=== PATIENT | male | born 1950 | race African-American/Black ===

== ENCOUNTER 2020-08-30 12:19 | Observation (INO) ==
[2020-08-30] MEDS ORDERED: PANTOPRAZOLE 40 MG TABLET PO STA (13:19)
[2020-08-30 13:38] LABS: Basophils # 0.1 10*3/uL (0.0-0.2); Basophils % 0.5 % (0.0-0.8); Eosinophils # 0.1 10*3/uL (0.0-0.87); Eosinophils % 0.8 % (0.00-10.9); Hematocrit 32.1 VOL% (42.0-52.0); Hemoglobin 10.3 GM/DL (14.0-18.0); Immature Granulocytes % 0.5 %; Immature Granulocytes Absolute 0.06 #; Lymphocytes # 2.7 10*3/uL (1.4-4.0); Lymphocytes % 20.2 % (21.2-54.2); Mean Corpuscular HGB Conc 32.1 GM/DL (32-36); Mean Corpuscular Volume 84.3 FL (87-102); Mean Platelet Volume 10.6 FL (9.6-12.0); Platelet Count 238 T/CUMM (130-400); Red Blood Count 3.81 MC/CUMM (3.8-5.5); Red Cell Distribution Width 15.2 % (9.3-17.3); White Blood Count 13.2 T/CUMM (4-12)
[2020-08-30] MEDS ORDERED: PANTOPRAZOLE 40 MG VIAL IV STA (13:50)
[2020-08-30 14:02] LABS: Albumin 3.4 G/DL (3.4-5.0); Bilirubin,Total 0.5 MG/DL (0.2-1.0); Calcium 8.7 MG/DL (8.5-10.1); Osmolality,Calculated 289.3 MOS/KG (273-304); Total Protein 7.2 G/DL (6.4-8.3)
[2020-08-30 14:12] LABS: PT Patient Result 10.9 SECS (9.8-11.9); Partial Thromboplastin Time 23.2 SECS (23.9-33.8)
[2020-08-30] MEDS ORDERED: GLUCAGON 1 MG VIAL IM PRN (14:59)
[2020-08-30] MEDS ORDERED: ACETAMINOPHEN 325 MG TABLET PO PRN (14:59)
[2020-08-30] MEDS ORDERED: DEXTROSE 50% 25 GM/50 ML VIAL IV PRN (14:59)
[2020-08-30] MEDS ORDERED: SODIUM CHLORIDE 0.9% 1,000 ML IV PRN (15:13)
[2020-08-30] MEDS: SODIUM CHLORIDE 0.9% 1,000 ML IV SCH (15:20)
[2020-08-30 17:46] LABS: Hemoglobin 9.3 GM/DL (14.0-18.0)
[2020-08-30] MEDS: INSULIN REGULAR 100 UNIT/ML SUBCUT SCH ×2 (20:38→20:41)
[2020-08-30] MEDS: PANTOPRAZOLE 40 MG VIAL IV SCH (20:38)
[2020-08-30 22:00] LABS: Hematocrit 25.8 VOL% (42.0-52.0); Hemoglobin 8.3 GM/DL (14.0-18.0)
[2020-08-31 02:36] LABS: Basophils # 0.1 10*3/uL (0.0-0.2); Basophils % 0.5 % (0.0-0.8); Eosinophils # 0.3 10*3/uL (0.0-0.87); Eosinophils % 2.3 % (0.00-10.9); Hematocrit 25.6 VOL% (42.0-52.0); Hemoglobin 8.1 GM/DL (14.0-18.0); Immature Granulocytes % 0.5 %; Immature Granulocytes Absolute 0.06 #; Lymphocytes % 36.1 % (21.2-54.2); Mean Corpuscular HGB Conc 31.6 GM/DL (32-36); Mean Corpuscular Volume 84.5 FL (87-102); Mean Platelet Volume 10.8 FL (9.6-12.0); Monocytes % 8.5 % (1.7-12.7); Neutrophils % 52.1 % (38.7-73.9); Platelet Count 194 T/CUMM (130-400); Red Blood Count 3.03 MC/CUMM (3.8-5.5); White Blood Count 11.2 T/CUMM (4-12)
[2020-08-31 03:09] LABS: Calcium 8.1 MG/DL (8.5-10.1); Osmolality,Calculated 296.7 MOS/KG (273-304)
[2020-08-31] MEDS: SODIUM CHLORIDE 0.9% 1,000 ML IV SCH (06:10)
[2020-08-31] MEDS: INSULIN REGULAR 100 UNIT/ML SUBCUT SCH ×4 (08:48→21:41)
[2020-08-31 09:51] LABS: Hematocrit 25.1 VOL% (42.0-52.0)
[2020-08-31] MEDS: DIVALPROEX 250 MG TABLET PO SCH ×2 (11:21→21:41)
[2020-08-31] MEDS: ISOSORBIDE MONONITRATE 60 MG TABLET PO SCH (11:21)
[2020-08-31] MEDS: METOPROLOL TARTRATE 100 MG TABLET PO SCH ×2 (11:21→21:41)
[2020-08-31] MEDS: SPIRONOLACTONE 25 MG TABLET PO SCH (11:21)
[2020-08-31] MEDS: PANTOPRAZOLE 40 MG VIAL IV SCH ×2 (11:22→21:56)
[2020-08-31 20:55] LABS: Hematocrit 23.6 VOL% (42.0-52.0); Hemoglobin 7.5 GM/DL (14.0-18.0)
[2020-09-01] MEDS: LEVOTHYROXINE 100 MCG TABLET PO SCH (07:07)
[2020-09-01] MEDS: INSULIN REGULAR 100 UNIT/ML SUBCUT SCH ×4 (07:32→21:27)
[2020-09-01] MEDS: SODIUM CHLORIDE 0.9% 1,000 ML IV SCH ×5 (07:59→18:53)
[2020-09-01 08:16] LABS: Basophils % 0.4 % (0.0-0.8); Eosinophils # 0.2 10*3/uL (0.0-0.87); Eosinophils % 2.8 % (0.00-10.9); Hemoglobin 8.7 GM/DL (14.0-18.0); Immature Granulocytes % 0.5 %; Immature Granulocytes Absolute 0.04 #; Lymphocytes # 2.1 10*3/uL (1.4-4.0); Lymphocytes % 25.2 % (21.2-54.2); Mean Corpuscular HGB Conc 32.2 GM/DL (32-36); Mean Corpuscular Volume 85.4 FL (87-102); Mean Platelet Volume 11.4 FL (9.6-12.0); Monocytes % 6.9 % (1.7-12.7); Neutrophils % 64.2 % (38.7-73.9); Platelet Count 139 T/CUMM (130-400); Red Blood Count 3.16 MC/CUMM (3.8-5.5); Red Cell Distribution Width 15.6 % (9.3-17.3); White Blood Count 8.2 T/CUMM (4-12)
[2020-09-01 08:41] LABS: Calcium 7.8 MG/DL (8.5-10.1)
[2020-09-01 08:51] LABS: Hypochromasia 1+; Microcytosis 1+
[2020-09-01 08:52] LABS: Ovalocytes Slight; Platelet Estimate Adequate
[2020-09-01 08:53] LABS: Polychromasia Slight
[2020-09-01] MEDS: DIVALPROEX 250 MG TABLET PO SCH ×2 (10:29→21:26)
[2020-09-01] MEDS: SPIRONOLACTONE 25 MG TABLET PO SCH (10:29)
[2020-09-01] MEDS: METOPROLOL TARTRATE 100 MG TABLET PO SCH ×2 (10:30→21:27)
[2020-09-01] MEDS: PANTOPRAZOLE 40 MG VIAL IV SCH ×2 (10:30→21:26)
[2020-09-01] MEDS: ISOSORBIDE MONONITRATE 60 MG TABLET PO SCH (10:30)
[2020-09-02] MEDS: SODIUM CHLORIDE 0.9% 1,000 ML IV SCH ×2 (01:18→07:59)
[2020-09-02] MEDS: LEVOTHYROXINE 100 MCG TABLET PO SCH (05:55)
[2020-09-02 07:14] LABS: Basophils % 0.4 % (0.0-0.8); Eosinophils # 0.2 10*3/uL (0.0-0.87); Eosinophils % 2.6 % (0.00-10.9); Hemoglobin 8.5 GM/DL (14.0-18.0); Immature Granulocytes % 0.4 %; Immature Granulocytes Absolute 0.03 #; Lymphocytes # 1.9 10*3/uL (1.4-4.0); Lymphocytes % 27.6 % (21.2-54.2); Mean Corpuscular HGB Conc 32.7 GM/DL (32-36); Mean Corpuscular Volume 86.1 FL (87-102); Mean Platelet Volume 11.2 FL (9.6-12.0); Monocytes % 7.1 % (1.7-12.7); Neutrophils % 61.9 % (38.7-73.9); Platelet Count 152 T/CUMM (130-400); Red Blood Count 3.02 MC/CUMM (3.8-5.5); Red Cell Distribution Width 15.7 % (9.3-17.3)
[2020-09-02 07:33] VITALS: BP 133/66
[2020-09-02 07:43] LABS: Calcium 7.7 MG/DL (8.5-10.1); Osmolality,Calculated 283.8 MOS/KG (273-304)
[2020-09-02] MEDS: INSULIN REGULAR 100 UNIT/ML SUBCUT SCH (09:38)
[2020-09-02] MEDS: METOPROLOL TARTRATE 100 MG TABLET PO SCH (09:39)
[2020-09-02] MEDS: SPIRONOLACTONE 25 MG TABLET PO SCH (09:39)
[2020-09-02] MEDS: DIVALPROEX 250 MG TABLET PO SCH (09:39)
[2020-09-02] MEDS: ISOSORBIDE MONONITRATE 60 MG TABLET PO SCH (09:39)
[2020-09-02] MEDS: PANTOPRAZOLE 40 MG VIAL IV SCH (09:40)
== END 2020-09-02 11:00 | disposition home or self-care (01) ==
LOC: N.ED 12:19 → INTOOBSV 15:00 → N.3E 15:00
PROVIDERS: ADMIT Emergency Medicine; ATTEND Emergency Medicine

== ENCOUNTER 2021-06-13 15:51 | Observation (INO) ==
[2021-06-13] MEDS ORDERED: SODIUM CHLORIDE 0.9% 1,000 ML IV STA (17:21)
[2021-06-13 17:37] LABS: Basophils % 0.4 % (0.0-0.8); Eosinophils # 0.1 10*3/uL (0.0-0.87); Eosinophils % 1.1 % (0.00-10.9); Hematocrit 44.4 VOL% (42.0-52.0); Hemoglobin 13.8 GM/DL (14.0-18.0); Immature Granulocytes % 0.3 %; Immature Granulocytes Absolute 0.03 #; Lymphocytes # 2.2 10*3/uL (1.4-4.0); Lymphocytes % 23.3 % (21.2-54.2); Mean Corpuscular HGB Conc 31.1 GM/DL (32-36); Mean Corpuscular Volume 83.5 FL (87-102); Mean Platelet Volume 10.9 FL (9.6-12.0); Monocytes % 8.7 % (1.7-12.7); Neutrophils % 66.2 % (38.7-73.9); Platelet Count 196 T/CUMM (130-400); Red Blood Count 5.32 MC/CUMM (3.8-5.5); Red Cell Distribution Width 15.6 % (9.3-17.3); White Blood Count 9.6 T/CUMM (4-12)
[2021-06-13 17:49] LABS: INR 1.4; PT Patient Result 15.1 SECS (10.5-12.0); Partial Thromboplastin Time 30.8 SECS (23.8-32.1)
[2021-06-13 18:24] LABS: Alanine Aminotransferase 22 U/L (16-61); Albumin 3.8 G/DL (3.4-5.0); Alkaline Phosphatase 86 U/L (45-117); Aspartate Amino Transferase 16 U/L (0-37); Blood Urea Nitrogen 14 MG/DL (7-18); Calcium 9.1 MG/DL (8.5-10.1); Carbon Dioxide 26 MMOL/L (21-32); Estimated Glom Filtration Rate 68 ML/MIN; Glucose 100 MG/DL (74-106); Osmolality,Calculated 279.4 MOS/KG (273-304); Potassium 3.8 MMOL/L (3.5-5.1); Sodium 140 MMOL/L (136-145); Total Protein 8.1 G/DL (6.4-8.2)
[2021-06-13 18:58] LABS: Bilirubin,Urine Negative (Negative); Blood, Urine Negative (Negative); Glucose,Urine (UA) Negative (Negative); Ketones,Urine Negative (Negative); Mucus,Urine Occasional /LPF (Occasional); Nitrite,Urine Negative (Negative); Protein,Urine Negative; RBC,Urine 2 /HPF (0-4); Sperm,Urine Occasional /HPF (Negative); Urine Appearance CLEAR (Clear); Urine Color Yellow (Yellow); Urine Specific Gravity 1.016 (1.001-1.035); Urine Urobilinogen < 2.0 EU/DL (0.2-1.0)
[2021-06-13 19:07] LABS: Barbiturates Screen,Urine Negative (Negative); Benzodiazepines Screen,Urine Negative (Negative); Cannabinoid Screen,Urine Negative (Negative); Opiate Screen,Urine Negative (Negative); Phencyclidine Screen,Urine Negative (Negative)
[2021-06-13] MEDS ORDERED: hydrALAZINE 20 MG/1 ML VIAL IV STA (19:16)
[2021-06-13] MEDS ORDERED: LABETALOL 20 MG/4 ML SYRINGE IV STA ×2 (20:27)
[2021-06-13] MEDS ORDERED: ONDANSETRON 4 MG/2 ML VIAL IV PRN (20:29)
[2021-06-13] MEDS ORDERED: hydrALAZINE 20 MG/1 ML VIAL IV PRN (20:29)
[2021-06-13] MEDS ORDERED: ACETAMINOPHEN 325 MG TABLET PO PRN (20:29)
[2021-06-13] MEDS ORDERED: ZALEPLON 5 MG CAPSULE PO PRN (20:29)
[2021-06-13] MEDS ORDERED: DEXTROSE 50% 25 GM/50 ML VIAL IV PRN (20:29)
[2021-06-13] MEDS ORDERED: GLUCAGON 1 MG VIAL IM PRN (20:29)
[2021-06-13] MEDS ORDERED: LACTULOSE 20 GM/30 ML UDCUP PO STA (20:45)
[2021-06-13] MEDS ORDERED: ASPIRIN 325 MG TABLET PO STA (20:45)
[2021-06-13] MEDS ORDERED: ENOXAPARIN 40 MG/0.4 ML SYRINGE SUBCUT SCH (21:00)
[2021-06-13] MEDS: METOPROLOL TARTRATE 100 MG TABLET PO SCH (23:51)
[2021-06-14] MEDS: LACTATED RINGERS 1,000 ML IV SCH ×2 (00:32→14:50)
[2021-06-14] MEDS: DIVALPROEX 250 MG TABLET PO SCH ×2 (00:32→10:30)
[2021-06-14] MEDS: INSULIN REGULAR 100 UNIT/ML SUBCUT SCH ×3 (00:33→12:07)
[2021-06-14 06:02] LABS: Basophils % 0.3 % (0.0-0.8); Eosinophils # 0.1 10*3/uL (0.0-0.87); Eosinophils % 1.4 % (0.00-10.9); Hematocrit 42.5 VOL% (42.0-52.0); Hemoglobin 13.1 GM/DL (14.0-18.0); Immature Granulocytes % 0.3 %; Immature Granulocytes Absolute 0.03 #; Lymphocytes # 2.3 10*3/uL (1.4-4.0); Lymphocytes % 26.2 % (21.2-54.2); Mean Corpuscular HGB Conc 30.8 GM/DL (32-36); Mean Corpuscular Volume 83.5 FL (87-102); Mean Platelet Volume 11.3 FL (9.6-12.0); Monocytes % 8.3 % (1.7-12.7); Neutrophils % 63.5 % (38.7-73.9); Platelet Count 185 T/CUMM (130-400); Red Blood Count 5.09 MC/CUMM (3.8-5.5); Red Cell Distribution Width 15.6 % (9.3-17.3); White Blood Count 8.6 T/CUMM (4-12)
[2021-06-14 06:11] LABS: PT Patient Result 11.2 SECS (10.5-12.0)
[2021-06-14 06:26] LABS: Calcium 8.2 MG/DL (8.5-10.1); Osmolality,Calculated 281.1 MOS/KG (273-304); Risk Ratio 2.57; Thyroid Stimulating Hormone 2.23 uIU/ml (0.358-3.74); VLDL Cholesterol 13.8 MG/DL
[2021-06-14] MEDS ORDERED: LEVOTHYROXINE 100 MCG TABLET PO SCH (06:30)
[2021-06-14] MEDS ORDERED: ATORVASTATIN 40 MG TABLET PO SCH (09:00)
[2021-06-14] MEDS ORDERED: ISOSORBIDE MONONITRATE 60 MG TABLET PO SCH (09:00)
[2021-06-14] MEDS ORDERED: PANTOPRAZOLE 40 MG TABLET PO SCH (09:00)
[2021-06-14] MEDS ORDERED: ASPIRIN 325 MG TABLET PO SCH (09:00)
[2021-06-14] MEDS ORDERED: LACTULOSE 20 GM/30 ML UDCUP PO ONE (09:09)
[2021-06-14] MEDS: METOPROLOL TARTRATE 100 MG TABLET PO SCH (10:29)
[2021-06-14 12:45] VITALS: BP 151/77
[2021-06-15] MEDS ORDERED: CLOPIDOGREL 75 MG TABLET PO SCH (09:00)
== END 2021-06-14 16:15 | disposition home or self-care (01) ==
LOC: N.ED 15:51 → N.EDINP 15:51 → N.2W 22:16
PROVIDERS: ADMIT Internal Medicine Geriatric Medicine; ATTEND Internal Medicine Geriatric Medicine